=== PATIENT | male | born 1935 | race Caucasian/White ===

== ENCOUNTER 2020-11-30 09:30 | Emergency (ER) | payer MEDICARE, BC ==
[~2020-11-30] VITALS: Ht 172.7 cm; Wt 83.4 kg
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
[2020-11-30] MEDS ORDERED: IV NORMAL SALINE 1,000ML 1,000 ML IV ONE (10:00)
[2020-11-30] MEDS ORDERED: IOHEXOL 300 MG/ML 75 ML VIAL. IV ONE (10:00)
[2020-11-30] MEDS ORDERED: MORPHINE SULFATE 4 MG/ML DISP.SYRIN. IV ONE (10:00)
[2020-11-30] MEDS ORDERED: ONDANSETRON PF 4 MG/2 ML VIAL. IVP ONE (10:00)
--- NOTE | 2020-11-30 10:03 | EKG ---
[address] [address] Test Date: 2020-11-30 Test Time: 09:51:23 Pat Name: LONG WHITE Department: Room: Gender: M Log Getter: LEXI : 1935 Requested By: QUE LAI Order Number: [id number] Reading MD: Measurements Intervals [place] Rate: 87 P: 39 MI: 150 QRS: 3 QRSD: 90 T: 36 QT: 400 QTc: 482 Interpretive Statements SINUS RHYTHM ATRIAL PREMATURE COMPLEX(ES) LOW LIMB LEAD VOLTAGE PROLONGED QT NO SPECIFIC ECG ABNORMALITIES RI6.02 No previous ECG available for comparison
[2020-11-30 10:33] LABS: BASO # 0.1 x10^3/uL (0.0-0.2); BASO % 1 % (0-3); EOS # 0.1 x10^3/uL (0.0-0.7); EOS % 1 % (0-3); HEMATOCRIT 41.8 % (39.0-53.0); HEMOGLOBIN 14.1 g/dL (13.0-17.5); LYMPH # 2.1 x10^3/uL (1.0-4.8); LYMPH % 21 % (24-48); MEAN CORPUSCULAR HEMOGLOBIN 31 pg (25-35); MEAN CORPUSCULAR HGB CONC 34 g/dL (31-37); MEAN CORPUSCULAR VOLUME 91 fL (79-100); MONO # 1.2 x10^3/uL (0.0-1.1); MONO % 12 % (0-9); NEUT # 6.8 x10^3uL (1.8-7.7); NEUT % 66 % (31-73); PLATELET COUNT 197 x10^3/uL (140-400); RED BLOOD COUNT 4.57 x10^6/uL (4.30-5.70); RED CELL DISTRIBUTION WIDTH 15.6 % (11.5-14.5); WHITE BLOOD COUNT 10.3 x10^3/uL (4.0-11.0)
--- NOTE | 2020-11-30 10:34 | RAD ---
EXAMINATION: Chest radiograph. VIEWS: Single view COMPARISON: None INDICATION:84 years, Male, flank pain. FINDINGS: Normal cardiomediastinal silhouette. No focal consolidation. Calcified granuloma in the right lung ba se. No pleural effusion or pneumothorax. No acute osseous process. IMPRESSION: No acute cardiopulmonary process. Electronically signed by: Tanja Hood MD (11/30/2020 10:31 AM) [id number]
[2020-11-30 10:51] LABS: CALCIUM 8.3 mg/dL (8.5-10.1); CREATININE 1.1 mg/dL (0.7-1.3); GFR 64.1; POTASSIUM 3.4 mmol/L (3.5-5.1)
[2020-11-30 11:00] LABS: ALBUMIN 3.3 g/dL (3.4-5.0); ALBUMIN/GLOBULIN RATIO 0.8 (1.0-1.7); MAGNESIUM 1.8 mg/dL (1.8-2.4); TOTAL BILIRUBIN 0.4 mg/dL (0.2-1.0); TOTAL PROTEIN 7.4 g/dL (6.4-8.2)
--- NOTE | 2020-11-30 11:29 | RAD ---
EXAMINATION: CT abdomen and pelvis with IV contrast. INDICATION:84 years, Male, left upper quadrant abdominal pain. TECHNIQUE: Axial CT images of the abdomen and pelvis were obtained. Coronal and sagittal reformatted performed. COMPARISON: None. Exposure: One or more of the following individualized dose reduction techniques were utilized for thi s examination: 1. Automated exposure control 2. Adjustment of the mA and/or kV according to patient size 3. Use of iterative reconstruction technique. FINDINGS: LOWER CHEST: Dependent subsegmental atelectasis in bibasilar lungs. Small fat-containing left Bochdalek hernia. ABDOMEN/PELVIS: Normal morphology and size of the liver with homogeneous enhancement. Unremarkable spleen. Cholecyste ctomy. Prominent central intrahepatic and extrahepatic biliary ductal dilation with smooth tapering d istally, likely secondary to postcholecystectomy status. Mildly atrophic pancreatic parenchyma. No pa ncreatic ductal dilatation. No adrenal nodule. No hydronephrosis or nephrolithiasis in either kidney. Subcentimeter hypodensities in the renal cortex, too small to characterize. Nonspecific bilateral pe rinephric fat stranding. Small hiatal hernia. Colonic diverticulosis without diverticulitis. No bowel obstruction or wall thic kening. Apparent wall thickening of the proximal ascending colon, likely secondary to underdistention . 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 The cecum seen within the anterior mid abdomen. Diffuse colonic vasa rect a engorgement. Appendix is not seen with certainty. Moderate aortobiiliac atherosclerotic calcifications without dilatation or significant narrowing. Mes enteric arteries and portal vein are patent. No pneumoperitoneum or ascites. No abdominopelvic lympha denopathy by size criteria. Trabeculated urinary bladder wall likely secondary to chronic outlet obst ruction secondary to prostamegaly. Prostate measures 4.7 cm in transverse dimension. MUSCULOSKELETAL: No acute osseous process. Degenerative changes in the spine. Small fat-containing umbilical hernia. IMPRESSION: 1. No acute abnormality in the abdomen or pelvis. 2. Colonic diverticulosis without acute diverticulitis. 3. 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 Clinical nima elation is advised. 4. Prostatomegaly. Consider correlation with PSA level. Electronically signed by: Tanja Hood MD (11/30/2020 11:27 AM) [id number]
[2020-11-30 12:41] LABS: BARBITURATES NEG (NEG); BENZODIAZEPINES NEG (NEG); CANNABINOIDS NEG (NEG); COCAINE NEG (NEG); METHADONE NEG (NEG); OPIATES POS (NEG); PHENCYCLIDINE NEG (NEG)
[2020-11-30 12:42] LABS: AMPHETAMINE/METHAMPHETAMINE NEG (NEG)
[2020-11-30 12:48] LABS: BACTERIA,URINE 0 /HPF (0-FEW); BILIRUBIN,URINE NEG (NEG); CLARITY,URINE CLEAR; COLOR,URINE YELLOW; GLUCOSE,URINE NEG (NEG); NITRITE,URINE NEG (NEG); RBC,URINE OCC /HPF (0-2); SQUAMOUS EPITHELIAL CELL,UR FEW /LPF; UROBILINOGEN,URINE 0.2 mg/dL (0.2 mg/dL)
[2020-11-30] MEDS ORDERED: LIDO700A21 TP (13:45)
[2020-11-30] MEDS ORDERED: LIDOCAINE (700MG/PATCH) PATCH. TD SCH (14:00)
[2020-11-30 14:01] VITALS: BP 136/82
[2020-11-30] MEDS ORDERED: PATCH REMOVAL. MC SCH (21:00)
== END 2020-11-30 14:15 | disposition home or self-care (01) ==
LOC: ER 09:30
DX: R10.12 Left upper quadrant pain (principal)
CPT/HCPCS: 36415; 71045; 74177; 80053; 80307; 81001; 83735; 83880; 84484; 85025; 93005; 96361; 96374; 96375; 99285; J2270; J2405; J7030; Q9967